=== PATIENT | male | born 1995 | race Caucasian/White ===

== ENCOUNTER 2018-08-16 01:25 | Emergency (ER) | payer OTHER ==
[2018-08-16 01:31] VITALS: BP 147/96
--- NOTE | 2018-08-16 01:43 | EDPHY ---
H & P Stated Complaint: L wrist pain post slip and fall Time Seen by Provider: 08/16/18 01:29 HPI/ROS: Chief Complaint: Left wrist pain status post fall HPI: 23-year-old male had a mechanical fall when he slipped on the ice about 6 hr ago. He landed on an outstretched left wrist. He is complaining of pain in his lateral and medial left wrist. No prior injuries. No numbness or weakness. No swelling. No other injuries. ROS: 10 systems were reviewed and were negative except those elements noted in the HPI. PMH: Denies Social History: No smoking, occasional alcohol Family History: non-contributory Physical Exam: Gen: Awake, Alert, No Distress Ext: no edema, moderate tenderness over the distal radius and some mild tenderness in the proximal 3rd metacarpal without deformity or edema. Sensation is intact in the radial, median, and ulnar nerve distribution. Capillary refills less than 2 sec. Skin: no rash Neuro: CN II-XII intact, Sensation grossly intact, Strength 5/5 in bilateral upper and lower extremities - Personal History Current Tetanus/Diphtheria Vaccine: Yes Current Tetanus Diphtheria and Acellular Pertussis (TDAP): Yes - Medical/Surgical History Hx Asthma: No Hx Chronic Respiratory Disease: No Hx Diabetes: No Hx Cardiac Disease: No Hx Renal Disease: No Hx Cirrhosis: No Hx Alcoholism: No Hx HIV/AIDS: No Hx Splenectomy or Spleen Trauma: No Other PMH: denies - Social History Smoking Status: Never smoked Constitutional: Initial Vital Signs Temperature (C) 37.0 C 08/16/18 01:29 Heart Rate 94 08/16/18 01:29 Respiratory Rate 16 08/16/18 01:29 Blood Pressure 147/96 H 08/16/18 01:29 O2 Sat (%) 96 08/16/18 01:29 O2 Delivery Mode Room Air Allergies/Adverse Reactions: No Known Allergies Allergy (Unverified 08/16/18 01:28) Home Medications: Medication Instructions Recorded NK [No Known Home Meds] 08/16/18 Medical Decision Making - Diagnostics Imaging Results: Wrist x-ray is negative per my interpretation. Imaging: I viewed and interpreted images myself ED Course/Re-evaluation: 23-year-old male with wrist pain. X-rays negative. Will place in Velcro wrist splint referred to Orthopedics for any concerns. Departure - Departure Disposition: Home, Routine, Self-Care Clinical Impression: Wrist sprain Condition: Good Instructions: Wrist Sprain (ED) Additional Instructions: You may wear the Velcro wrist splint as needed for comfort. Take ibuprofen, 600 mg every 8 hr. You may alternate with acetaminophen, 1000 mg every 8 hr. Follow up with orthopedist in 3-4 days if symptoms are not improving. Referrals: Angel Mccallum MD [Medical Doctor] - As per Instructions
== END 2018-08-16 02:30 | disposition home or self-care (01) ==
DX: S63.502A Unspecified sprain of left wrist, initial encounter (principal); W00.0XXA Fall on same level due to ice and snow, initial encounter; Y92.9 Unspecified place or not applicable; Y99.9 Unspecified external cause status; Y93.9 Activity, unspecified